=== PATIENT | female | born 1970 | race American Indian/Alaskan Native ===

== ENCOUNTER 2022-05-07 09:25 | Emergency (ER) | payer MEDICAID ==
[2022-05-07 10:00] VITALS: BP 166/90
[2022-05-07 10:15] VITALS: PULSE 103
[2022-05-07 10:29] LABS: ANION GAP 12.7 mEq/L (7-13)
[2022-05-07] MEDS ORDERED: Vancomycin 2 GM in Sodium Chloride 0.9% 500 ML IV ONE (10:42)
[2022-05-07] MEDS ORDERED: HYDROmorphone 0.5 MG/0.5 ML Syringe IVPUSH ONE (12:59)
== END 2022-05-07 14:06 | disposition home or self-care (01) ==
LOC: DL.ED 09:25
DX: L03.116 Cellulitis of left lower limb (principal)
CPT/HCPCS: 36415; 80053; 83605; 85025; 85379; 87040; 93971; 96365; 96366; 96375; 99284; J1170; J3370; J7040

== ENCOUNTER 2023-04-23 01:13 | Emergency (ER) | payer MEDICAID ==
[2023-04-23 01:44] VITALS: BP 101/64; PULSE 117
[2023-04-23] MEDS ORDERED: Albuterol/Ipratropium 3.0-0.5 MG/3 ML Neb Soln NEB ONE (02:01)
[2023-04-23] MEDS ORDERED: Sodium Chloride 0.9% 10 ML Syringe FLUSH PRN (02:01)
[2023-04-23 02:22] LABS: BASOPHILS PERCENT AUTO 1.3 % (0.0-1.0); HEMATOCRIT 47.5 % (37.0-47.0); HEMOGLOBIN 16.3 g/dL (12.0-16.0); LYMPHOCYTES PERCENT AUTO 34.3 % (20.5-50.1); MEAN CORPUSCULAR HEMOGLOBIN 32.3 pg (27.0-34.0); MEAN CORPUSCULAR HGB CONC 34.3 g/dL (33.0-35.0); MEAN CORPUSCULAR VOLUME 94.2 fL (80-100); MONOCYTES PERCENT AUTO 7.4 % (2-8); PLATELET COUNT,PLT 200 10^3/uL (150-450); RED BLOOD CELL COUNT 5.04 10^6/uL (4.2-5.4); WHITE BLOOD CELL COUNT,WBC 6.4 10^3/uL (5.0-10.0)
[2023-04-23 02:31] LABS: APPEARANCE,URINE CLEAR (CLEAR); BILIRUBIN,URINE NEGATIVE (NEGATIVE); COLOR,URINE YELLOW (YELLOW); GLUCOSE,URINE 500 (NEGATIVE); KETONES,URINE NEGATIVE (NEGATIVE); LEUKOCYTE ESTERASE,URINE NEGATIVE (NEGATIVE); NITRITE,URINE NEGATIVE (NEGATIVE); OCCULT BLOOD,URINE TRACE-INTACT (NEGATIVE); PH,URINE 5.5 (5.0-9.0); PROTEIN,URINE NEGATIVE (NEGATIVE); UROBILINOGEN,URINE 0.2 mg/dL (0.2-1.0)
[2023-04-23 02:39] LABS: HEMOGLOBIN A1C 9.1 % (<5.7)
[2023-04-23 02:44] LABS: BACTERIA,URINE MANY /HPF (0-FEW/HPF); EPITHELIAL CELLS,URINE MODERATE /HPF (NOT SEEN); RBC,URINE 0-5 /HPF (0-5); WBC,URINE 0-5 /HPF (0-5/HPF)
[2023-04-23 02:48] LABS: ALBUMIN 3.2 g/dL (3.4-5.0); ANION GAP 17.7 mEq/L (7-13); BILIRUBIN TOTAL 0.5 mg/dL (0.2-1.0); BUN/CREATININE RATIO 7.4 (No establ ref range); CALCIUM 8.4 mg/dL (8.5-10.1); CREATININE 0.81 mg/dL (0.55-1.02); EST CRCL DRUG DOSING (CG) 62.07 mL/min; MAGNESIUM 2.1 mg/dL (1.8-2.4); POTASSIUM,K 3.7 mmol/L (3.5-5.1); PROTEIN TOTAL,TP 8.1 g/dL (6.4-8.2); TSH ULTRASENSITIVE 2.06 uIU/mL (0.36-3.74)
[2023-04-23 02:53] LABS: A/G RATIO 0.65
[2023-04-23] MEDS ORDERED: Insulin Glarg,Human.Rec.Analog 100 Unit/ML 10 ML Vial SUBCUT ONE (03:01)
[2023-04-23] MEDS ORDERED: Glucagon,Human Recombinant 1 MG Vial IM PRN (03:01)
[2023-04-23] MEDS ORDERED: 50% Dextrose in Water 50 ML Syringe IVPUSH PRN (03:01)
== END 2023-04-23 03:25 | disposition home or self-care (01) ==
LOC: DL.ED 01:13
DX: R07.89 Other chest pain (principal); E11.65 Type 2 diabetes mellitus with hyperglycemia; I73.9 Peripheral vascular disease, unspecified; F17.210 Nicotine dependence, cigarettes, uncomplicated; E66.9 Obesity, unspecified; Z68.42 Body mass index [BMI] 45.0-49.9, adult
CPT/HCPCS: 36415; 71046; 80053; 81001; 82947; 83036; 83735; 84443; 84484; 85025; 93005; 93010; 99284; 99285; J1815-GY; J3490; J7620-GY

== ENCOUNTER 2023-07-04 10:51 | Emergency (ER) | payer MEDICAID ==
[2023-07-04] MEDS ORDERED: Sodium Chloride 0.9% 10 ML Syringe FLUSH PRN (11:00)
[2023-07-04 11:06] LABS: BASOPHILS PERCENT AUTO 0.1 % (0.0-1.0); HEMATOCRIT 47.1 % (37.0-47.0); HEMOGLOBIN 16.1 g/dL (12.0-16.0); LYMPHOCYTES PERCENT AUTO 7.3 % (20.5-50.1); MEAN CORPUSCULAR HEMOGLOBIN 31.3 pg (27.0-34.0); MEAN CORPUSCULAR HGB CONC 34.2 g/dL (33.0-35.0); MEAN CORPUSCULAR VOLUME 91.5 fL (80-100); MONOCYTES PERCENT AUTO 5.4 % (2-8); NEUTROPHILS PERCENT AUTO 87.2 % (42.2-75.2); PLATELET COUNT,PLT 164 10^3/uL (150-450); RED BLOOD CELL COUNT 5.15 10^6/uL (4.2-5.4); WHITE BLOOD CELL COUNT,WBC 14.3 10^3/uL (5.0-10.0)
[2023-07-04] MEDS ORDERED: Acetaminophen 500 MG Tab PO ONE (11:10)
[2023-07-04] MEDS ORDERED: Ketorolac 30 MG/ML SDV IVPUSH ONE (11:10)
[2023-07-04 11:27] LABS: ALANINE AMINOTRANSFERASE,ALT 38 U/L (14-59); ALBUMIN 3.1 g/dL (3.4-5.0); ALKALINE PHOSPHATASE 236 U/L (46-116); AMYLASE 31 U/L (25-115); ANION GAP 18.8 mEq/L (7-13); ASPARTATE AMNIOTRANSFERASE,AST 19 U/L (15-37); BILIRUBIN TOTAL 1.4 mg/dL (0.2-1.0); BLOOD UREA NITROGEN,BUN 6 mg/dL (7-18); BUN/CREATININE RATIO 9.8 (No establ ref range); C-REACTIVE PROTEIN 8.78 ng/dL (<=0.50); CALCIUM 8.7 mg/dL (8.5-10.1); CARBON DIOXIDE,CO2 19 mmol/L (21-32); CHLORIDE,CL 94 mmol/L (98-107); CREATININE 0.61 mg/dL (0.55-1.02); GLUCOSE RANDOM 333 mg/dL (70-99); LIPASE 21 U/L (16-77); MAGNESIUM 1.6 mg/dL (1.8-2.4); POTASSIUM,K 3.8 mmol/L (3.5-5.1); PROTEIN TOTAL,TP 7.9 g/dL (6.4-8.2); SODIUM,NA 128 mmol/L (136-145)
[2023-07-04 11:28] LABS: A/G RATIO 0.65; ESTIMATED GFR 106 mL/min (>=60); ETHANOL BLOOD MEDICAL < 3 mg/dL (0)
[2023-07-04 11:30] LABS: LACTIC ACID 1.5 mmol/L (0.4-2.0)
[2023-07-04] MEDS ORDERED: Sodium Chloride 0.9% 1,000 ML IV ONE (11:31)
[2023-07-04] MEDS ORDERED: cefTRIAXone 2 GM Vial IVPUSH ONE (11:31)
== END 2023-07-04 12:21 | disposition home or self-care (01) ==
LOC: DL.ED 10:51
DX: J18.9 Pneumonia, unspecified organism (principal); F17.210 Nicotine dependence, cigarettes, uncomplicated; E66.9 Obesity, unspecified; E11.9 Type 2 diabetes mellitus without complications; Z79.84 Long term (current) use of oral hypoglycemic drugs
CPT/HCPCS: 36415; 71046; 80053; 80307; 82150; 83605; 83690; 83735; 84484; 85025; 86140; 93005; 93010; 96361; 96374; 96375; 99284; 99285; A9270; J0696; J1885; J7030; J3490

== ENCOUNTER 2023-07-20 11:52 | Emergency (ER) | payer MEDICAID ==
[2023-07-20] MEDS ORDERED: Sodium Chloride 0.9% 10 ML Syringe FLUSH PRN (12:14)
[2023-07-20] MEDS ORDERED: Albuterol/Ipratropium 3.0-0.5 MG/3 ML Neb Soln NEB ONE (12:15)
[2023-07-20] MEDS ORDERED: Sodium Chloride 0.9% 1,000 ML IV ONE ×2 (12:15→15:01)
[2023-07-20] MEDS ORDERED: methylPREDNISolone Sodium Succinate 125 MG/2 ML SDV IVPUSH ONE (12:15)
[2023-07-20] MEDS ORDERED: Benzonatate 100 MG Cap PO ONE (12:15)
[2023-07-20] MEDS ORDERED: Iopamidol 755 Mg/ML 100 ML Bottle IVPUSH ONE (12:19)
[2023-07-20 12:28] LABS: HEMATOCRIT 41.2 % (37.0-47.0); HEMOGLOBIN 13.6 g/dL (12.0-16.0); MEAN CORPUSCULAR HEMOGLOBIN 30.6 pg (27.0-34.0); MEAN CORPUSCULAR VOLUME 92.6 fL (80-100); PLATELET COUNT,PLT 486 10^3/uL (150-450); RED BLOOD CELL COUNT 4.45 10^6/uL (4.2-5.4); WHITE BLOOD CELL COUNT,WBC 10.9 10^3/uL (5.0-10.0)
[2023-07-20 12:29] LABS: LYMPHOCYTES PERCENT AUTO 16.7 % (20.5-50.1); NEUTROPHILS PERCENT AUTO 70.6 % (42.2-75.2)
[2023-07-20 12:30] LABS: BASOPHILS PERCENT AUTO 0.8 % (0.0-1.0); EOSINOPHILS PERCENT AUTO 1.9 % (1.0-3.0)
[2023-07-20 12:43] LABS: EOSINOPHILS PERCENT MAN 1 % (1-3); LYMPHOCYTES PERCENT MAN 20 % (20-50); MONOCYTES PERCENT MAN 7 % (2-8); SEG NEUTROPHILS PERCENT MAN 72 % (42-75)
[2023-07-20 12:45] LABS: ANION GAP 14.1 mEq/L (7-13); BILIRUBIN TOTAL 0.6 mg/dL (0.2-1.0); BUN/CREATININE RATIO 8.9 (No establ ref range); CALCIUM 8.6 mg/dL (8.5-10.1); CREATININE 0.56 mg/dL (0.55-1.02); EST CRCL DRUG DOSING (CG) 89.77 mL/min; POTASSIUM,K 4.1 mmol/L (3.5-5.1); PROTEIN TOTAL,TP 7.8 g/dL (6.4-8.2)
[2023-07-20 12:52] LABS: A/G RATIO 0.34
[2023-07-20] MEDS ORDERED: Insulin Regular, Human 100 Units/ML 3 ML Vial IV ONE (12:54)
[2023-07-20] MEDS ORDERED: 50% Dextrose in Water 50 ML Syringe IVPUSH PRN (12:54)
[2023-07-20] MEDS ORDERED: Glucagon,Human Recombinant 1 MG Vial IM PRN (12:54)
[2023-07-20] MEDS ORDERED: Dexamethasone 4 MG/ML SDV IM ONE (13:11)
[2023-07-20] MEDS ORDERED: Acetaminophen 500 MG Tab PO ONE (13:11)
[2023-07-20] MEDS ORDERED: Lactulose Soln 10 GM/15 ML 30 ML UD Cup PO ONE (13:12)
[2023-07-20] MEDS ORDERED: Bisacodyl 5 MG Tab PO ONE (13:12)
[2023-07-20 13:16] LABS: LACTIC ACID 1.4 mmol/L (0.4-2.0)
[2023-07-20 14:30] VITALS: BP 125/95; PULSE 104
[2023-07-20] MEDS ORDERED: diphenhydrAMINE 50 MG/ML SDV IVPUSH ONE (15:01)
[2023-07-20] MEDS ORDERED: Ertapenem 1 GM Vial IVPUSH ONE (15:08)
[2023-07-20 15:37] LABS: BASE EXCESS ARTERIAL -2 mmol/L ((-2)-(+3)); BICARBONATE,ARTERIAL 21.9 mmol/L (22-26); O2 DELIVERY DEVICE ROOM AIR; O2 SATURATION ARTERIAL 95 % (95-100); PCO2 ARTERIAL 36 mmHg (35-45); PO2 ARTERIAL 71 mmHg (70-100)
[2023-07-20 15:38] LABS: ALLEN TEST PERFORMED
== END 2023-07-20 20:10 ==
LOC: DL.ED 11:52
DX: J85.0 Gangrene and necrosis of lung (principal); J86.9 Pyothorax without fistula
CPT/HCPCS: 36415; 36600; 71275; 80053; 82803; 82947; 83605; 83880; 84484; 85025; 86140; 87040; 93005; 93010; 94010; 94640; 96361; 96365; 96375; 99285; A9270; J1200; J1335; J1815; J2930; J3370; J7030; J7050; Q9967; J3490; J7620-GY